=== PATIENT | female | born 1955 | race Caucasian/White ===

== ENCOUNTER 2021-06-06 08:38 | Day surgery (SDC) | payer MEDICAID ==
[~2021-06-06] VITALS: Ht 162.6 cm; Wt 74.5 kg
[2021-06-06] VITALS (16 sets, daily range): BP systolic 97–133; BP diastolic 38–77
[2021-06-06] MEDS ORDERED: normal saline 1000ml 1,000 ML IV SCH (09:00)
[2021-06-06 09:29] LABS: BASOPHILS # (AUTO) 0.1 X10'3 (0-0.2); BASOPHILS % (AUTO) 0.6 % (0-1); EOSINOPHILS # (AUTO) 0.1 X10'3 (0-0.9); EOSINOPHILS % (AUTO) 1.1 % (0-6); HEMATOCRIT 43.6 % (35.0-45.0); HEMOGLOBIN 14.5 g/dl (12.0-16.0); LYMPHOCYTES # (AUTO) 1.9 X10'3 (1.1-4.8); LYMPHOCYTES % (AUTO) 18.6 % (21-51); MEAN CORPUSCULAR HEMOGLOBIN 29.5 PG (27.0-31.0); MEAN CORPUSCULAR HGB CONC 33.3 g/dL (33.0-36.5); MEAN CORPUSCULAR VOLUME 88.6 FL (78-98); MEAN PLATELET VOLUME 9.4 FL (7.4-10.4); MONOCYTES # (AUTO) 0.8 X10'3 (0-0.9); MONOCYTES % (AUTO) 8.1 % (2-12); NEUTROPHILS # (AUTO) 7.1 X10'3 (1.8-7.7); NEUTROPHILS % (AUTO) 71.6 % (42-75); PLATELET COUNT 198 X10'3 (140-440); RED BLOOD COUNT 4.92 X10'6 (4.20-5.60); RED CELL DISTRIBUTION WIDTH 14.3 % (11.5-14.5); WHITE BLOOD COUNT 9.9 X10'3 (4.5-11.0)
[2021-06-06] MEDS ORDERED: GABA300C PO (10:10)
[2021-06-06] MEDS ORDERED: LURA60TA PO (10:10)
[2021-06-06] MEDS ORDERED: SERT-434 PO (10:10)
[2021-06-06] MEDS ORDERED: ASPI-611 PO (10:10)
[2021-06-06] MEDS ORDERED: midazolam 1 mg/ML 2ml injection ONE (10:10)
[2021-06-06] MEDS ORDERED: LIDOcaine 1% (10mg/ml) 2ml vial ONE (10:10)
[2021-06-06] MEDS ORDERED: TOLN113. TOP (10:10)
[2021-06-06] MEDS ORDERED: BENZ1TAB7 PO (10:10)
[2021-06-06] MEDS ORDERED: CLON0.5T23 PO ×2 (10:10)
[2021-06-06] MEDS ORDERED: OMEP20CA16 PO (10:10)
[2021-06-06] MEDS ORDERED: ALBU8.5H17 INH (10:10)
[2021-06-06] MEDS ORDERED: SIMV40TA PO (10:10)
[2021-06-06] MEDS ORDERED: gelatin sponge, absorbable (Gelfoam 12-7MM) sponge TP ONE (10:11)
[2021-06-06] MEDS ORDERED: fentaNYL/PF 50MCG/1 ML 2ML syringe ONE (10:11)
[2021-06-06] MEDS ORDERED: HYDROcodone/acetaminophen 5mg/325mg tablet PO PRN ×2 (11:05)
== END 2021-06-06 14:00 | disposition home or self-care (01) ==
LOC: SSTAY O 08:38
PROVIDERS: ATTEND Radiology Vascular & Interventional Radiology
DX: R91.1 Solitary pulmonary nodule (principal); J84.10 Pulmonary fibrosis, unspecified; Z87.891 Personal history of nicotine dependence; Z79.899 Other long term (current) drug therapy; Z79.82 Long term (current) use of aspirin
CPT/HCPCS: 32408; 36415; 71045; 85025; J3010; J3490; 77012; J2250

== ENCOUNTER 2021-12-15 08:15 | Inpatient (IN) | payer MEDICAID ==
[2021-12-15] VITALS (21 sets, daily range): BP systolic 92–182; BP diastolic 46–98
[~2021-12-15] VITALS: Ht 162.6 cm; Wt 72.3 kg
[~2021-12-15 08:15] MED LIST: ALBU8.5H17 INH; ASPI-611 PO; BENZ1TAB7 PO; CLON0.5T23 PO; CLON1TAB95 PO; GABA300C PO; LURA60TA PO; OMEP20CA16 PO; SERT-434 PO; SIMV40TA PO; albuterol 2.5 MG/3 ML nebule NEB ONE; ceFAZolin inj. 2,000 MG in dextrose 5%-water 100 ML IV ONE; famotidine 20mg tablet PO ONE
[2021-12-15 10:11] LABS: BASOPHILS % (AUTO) 0.6 % (0-1); EOSINOPHILS # (AUTO) 0.2 X10'3 (0-0.9); EOSINOPHILS % (AUTO) 2.4 % (0-6); LYMPHOCYTES # (AUTO) 1.9 X10'3 (1.1-4.8); LYMPHOCYTES % (AUTO) 24.9 % (21-51); MEAN CORPUSCULAR HEMOGLOBIN 30.4 PG (27.0-31.0); MEAN CORPUSCULAR HGB CONC 33.7 g/dL (33.0-36.5); MEAN CORPUSCULAR VOLUME 90.3 FL (78-98); MEAN PLATELET VOLUME 8.6 FL (7.4-10.4); MONOCYTES # (AUTO) 0.7 X10'3 (0-0.9); MONOCYTES % (AUTO) 8.6 % (2-12); NEUTROPHILS # (AUTO) 4.8 X10'3 (1.8-7.7); NEUTROPHILS % (AUTO) 63.5 % (42-75); PRE OP HEMATOCRIT 42.7 % (35.0-45.0); PRE OP HEMOGLOBIN 14.4 g/dL (12.0-16.0); PRE OP PLATELET COUNT 199 X10'3 (140-440); RED BLOOD COUNT 4.73 X10'6 (4.20-5.60); RED CELL DISTRIBUTION WIDTH 14.3 % (11.5-14.5)
[2021-12-15] MEDS: ringers solution, lacted 1,000 ML IV SCH (10:12)
[2021-12-15 10:13] LABS: PRE OP PROTIME 10.2 SECONDS (9.0-12.0)
[2021-12-15] MEDS ORDERED: ipratropium/albuterol 3ml nebule NEB PRN (10:20)
[2021-12-15 10:22] LABS: ALBUMIN 3.8 G/DL (3.4-5.0); ALBUMIN/GLOBULIN RATIO 1.2 (1.1-1.5); ALKALINE PHOSPHATASE 122 IU/L (46-116); BLOOD UREA NITROGEN 15 MG/DL (7-18); BUN/CREATININE RATIO 19.7 (6.6-38.0); CALCIUM 9.5 MG/DL (8.5-10.1); CHLORIDE 106 MMOL/L (99-107); CREATININE 0.76 MG/DL (0.40-0.90); PRE OP ALT 16 U/L (30-65); PRE OP ANION GAP 5 (8-16); PRE OP AST 14 U/L (10-37); PRE OP BILIRUB, TOTAL 0.4 MG/DL (0.0-1.0); PRE OP GLUCOSE 102 MG/DL (70-104); PRE OP POTASSIUM 3.9 MMOL/L (3.4-5.1); PRE OP SODIUM 143 MMOL/L (135-145); TOTAL CARBON DIOXIDE 32.4 MMOL/L (24-32); eGFR 77 ML/MIN
[2021-12-15] MEDS ORDERED: iohexol 300mg/ml 100ml inj. ONE (11:06)
[2021-12-15] MEDS ORDERED: sugammadex 200mg/2ml injection IV ONE (11:50)
[2021-12-15] MEDS ORDERED: dexmedetomidine 200mcg/2ml inj. IV ONE (11:50)
[2021-12-15] MEDS ORDERED: sevoflurane 250ml liquid IH ONE (11:50)
[2021-12-15] MEDS ORDERED: rocuronium 10mg/ml inj IV ONE ×3 (11:58→14:20)
[2021-12-15] MEDS ORDERED: dexamethasone sod phosphate 4mg/ml inj. ONE (11:58)
[2021-12-15] MEDS ORDERED: fentaNYL /PF 50mcg/ml 5ml ampule ONE (11:58)
[2021-12-15] MEDS ORDERED: propofol inj 20 ML IV ONE (11:58)
[2021-12-15] MEDS ORDERED: LIDOcaine 2% (20mg/ml) 5ml vial ONE (11:58)
[2021-12-15] MEDS ORDERED: ondansetron/PF 4mg/2ml inj ONE (11:58)
[2021-12-15] MEDS ORDERED: labetalol 20mg/4ml (5mg/ml) syringe IV ONE (12:44)
[2021-12-15] MEDS ORDERED: morphine 2 MG/ML inj. syringe IV PRN (13:40)
[2021-12-15] MEDS ORDERED: ondansetron/PF 4mg/2ml inj IV PRN ×3 (13:40→16:05)
[2021-12-15] MEDS ORDERED: labetalol 20mg/4ml (5mg/ml) syringe IV PRN (13:40)
[2021-12-15] MEDS ORDERED: hydrALAZINE 20mg/ml inj. IV PRN (13:40)
[2021-12-15] MEDS ORDERED: ringers solution, lacted 1,000 ML IV SCH (13:40)
[2021-12-15] MEDS ORDERED: fentaNYL/PF 50MCG/1 ML 2ML syringe IV PRN ×2 (13:40)
[2021-12-15] MEDS ORDERED: BUPIVACAINE liposomal/PF 13.3 MG/ML vial IM ONE ×2 (14:04→14:05)
[2021-12-15] MEDS ORDERED: BUPIVAcaine/PF 2.5 mg/ml (0.25%) 30ml vial ONE (14:04)
--- NOTE | 2021-12-15 15:30 | NUR ---
Received from OR via [facility], accompanied by Anesthesiologist and report given by Anesthesiologist. PATIENT WAKING UP, NO S/S OF PAIN, V/S WNL, 20G TO RUE, ART LINE RUE, SCD ON, NEURO CHECKS WNL , PERRLA EYES, EQUAL STRENGTHS BUE BLE , TONGUE MIDLINE, CL TRIPLE LUMEN RIGHT NECK CDI .MINIMAL OUTPUT TO RIGHT CHEST TUBE CDI WITH NO LEAKS DETECTED AT 20CM OF SUCTION. F/C DRAINING CLEAR YELLOW TUBING. ABG DRAWN AND WILL REPEAT IN 30 MIN, CHEST XRY REVIEWED BY ANESTHESIA. CVP 9
[2021-12-15 15:40] LABS: ABG BASE EXCESS -0.2 mmol/L (-2.0-2.0); ABG HCO3 27.6 mmol/L (22.0-26.0); ABG OXYGEN SATURATION 97.4 % (94-97); ABG PCO2 (T) 55.5 mmHg (32.0-45.0); ABG PO2 (T) 99.8 mmHg (75.0-100.0); FCOHb 1.4 % (0.0-3.9); FLOW 10 L/min; FMetHb 0.3 % (0.0-1.5); FO2Hb 95.7 % (94-97); TOTAL HEMOGLOBIN 14.4 G/dl (12.0-16.0)
[2021-12-15] MEDS ORDERED: HYDROcodone/acetaminophen 5mg/325mg tablet PO PRN (16:05)
[2021-12-15] MEDS ORDERED: naloxone 0.4 mg/ml inj IV PRN (16:05)
[2021-12-15] MEDS: morphine 4 MG/ML inj SYRINge IV PRN ×2 (16:13→16:32)
[2021-12-15 16:21] LABS: ABG BASE EXCESS -0.9 mmol/L (-2.0-2.0); ABG HCO3 26.1 mmol/L (22.0-26.0); ABG PCO2 (T) 50.3 mmHg (32.0-45.0); ABG PO2 (T) 63.5 mmHg (75.0-100.0); FCOHb 1.4 % (0.0-3.9); FLOW 2 L/min; FMetHb 0.3 % (0.0-1.5); FO2Hb 90.4 % (94-97); TOTAL HEMOGLOBIN 14.4 G/dl (12.0-16.0)
[2021-12-15] MEDS: ketorolac trometh. 30mg/ml inj. IV PRN (16:33)
--- NOTE | 2021-12-15 17:29 | NUR ---
Received report from ARACELY Gordon.
[2021-12-15 17:38] LABS: ABG BASE EXCESS 0.2 mmol/L (-2.0-2.0); ABG OXYGEN SATURATION 92.6 % (94-97); ABG PCO2 (T) 56.4 mmHg (32.0-45.0); ABG PO2 (T) 66.3 mmHg (75.0-100.0); FCOHb 1.3 % (0.0-3.9); FLOW 3 L/min; FMetHb 0.3 % (0.0-1.5); FO2Hb 91.1 % (94-97); TOTAL HEMOGLOBIN 14.1 G/dl (12.0-16.0)
--- NOTE | 2021-12-15 18:18 | NUR ---
Problems reprioritized. Patient report given, questions answered & plan of care reviewed with ARACELY Zavaleta.
--- NOTE | 2021-12-15 18:20 | NUR ---
PATIENT A&OX4, DENIES PAIN, V/S WNL, 20G TO RUE, ART LINE RUE D/C, SCD ON, NEURO CHECKS WNL , CL TRIPLE LUMEN RIGHT NECK CDI .MINIMAL OUTPUT TO RIGHT CHEST TUBE CDI WITH NO LEAKS DETECTED AT 20CM OF SUCTION. F/C DRAINING CLEAR YELLOW TUBING. ABG DRAWN AND WILL REPEAT AT 1900. PATIENT TAKEN TO ROOM 360A WITH ALL BELONGINGS AND HOOKED UP TO MONITORS AND SUCTION IN ROOM AND GIVEN CALL LIGHT, TELE ON, REPORT GIVEN TO RN WHO HAS TAKEN OVER PATIENT CARE.
[2021-12-15] MEDS: potassium CL 20mEq in D5-1/2NS 1,000 ML IV SCH (19:36)
[2021-12-15 20:41] LABS: ABG HCO3 27.2 mmol/L (22.0-26.0); ABG OXYGEN SATURATION 91.7 % (94-97); ABG PCO2 (T) 56.6 mmHg (32.0-45.0); ABG PO2 (T) 68.8 mmHg (75.0-100.0); ALLEN'S TEST POSITIVE; FCOHb 1.3 % (0.0-3.9); FLOW 3 L/min; FMetHb 0.3 % (0.0-1.5); FO2Hb 90.2 % (94-97); PATIENT TEMPERATURE 37.6; TOTAL HEMOGLOBIN 13.9 G/dl (12.0-16.0)
[2021-12-15] MEDS: ceFAZolin 1GM/D5W- ADD-VANTAGE 50 ML IV SCH (23:40)
[2021-12-16] VITALS: BP 100/62
--- NOTE | 2021-12-16 | NUR ---
Dr. Ascencio called, order for pts chest tube to be on suction. Addendum: 12/16/21 at 0033 by Meghann Pulliam RN Amended: Links added.
[2021-12-16] MEDS: potassium CL 20mEq in D5-1/2NS 1,000 ML IV SCH ×4 (00:05→19:01)
[2021-12-16] MEDS: HYDROmorphone inj. 0.5 MG/0.5 ML DISP.SYRIN IV PRN ×2 (03:20→16:51)
[2021-12-16 04:00] VITALS: BP 99/57
--- NOTE | 2021-12-16 06:39 | NUR ---
Problems reprioritized. Patient report given, questions answered & plan of care reviewed with Melanie JESSICA. Addendum: 12/16/21 at 0640 by Meghann Pulliam RN Amended: Links added.
[2021-12-16 06:43] LABS: BASOPHILS % (AUTO) 0.2 % (0-1); EOSINOPHILS % (AUTO) 0 % (0-6); HEMATOCRIT 36.1 % (35.0-45.0); HEMOGLOBIN 12.2 g/dl (12.0-16.0); LYMPHOCYTES # (AUTO) 1.5 X10'3 (1.1-4.8); LYMPHOCYTES % (AUTO) 9.6 % (21-51); MEAN CORPUSCULAR HEMOGLOBIN 30.6 PG (27.0-31.0); MEAN CORPUSCULAR HGB CONC 33.7 g/dL (33.0-36.5); MEAN PLATELET VOLUME 9.5 FL (7.4-10.4); MONOCYTES # (AUTO) 1.5 X10'3 (0-0.9); MONOCYTES % (AUTO) 9.4 % (2-12); NEUTROPHILS # (AUTO) 12.6 X10'3 (1.8-7.7); NEUTROPHILS % (AUTO) 80.8 % (42-75); PLATELET COUNT 174 X10'3 (140-440); RED BLOOD COUNT 3.97 X10'6 (4.20-5.60); RED CELL DISTRIBUTION WIDTH 14.3 % (11.5-14.5); WHITE BLOOD COUNT 15.6 X10'3 (4.5-11.0)
[2021-12-16 06:53] LABS: ALBUMIN 3.1 G/DL (3.4-5.0); ANION GAP 2 (8-16); BLOOD UREA NITROGEN 12 MG/DL (7-18); BUN/CREATININE RATIO 16.2 (6.6-38.0); CALCIUM 8.4 MG/DL (8.5-10.1); CHLORIDE 105 MMOL/L (99-107); CREATININE 0.74 MG/DL (0.40-0.90); GLUCOSE 146 MG/DL (70-104); POTASSIUM 4.1 MMOL/L (3.5-5.1); SODIUM 138 MMOL/L (135-145); TOTAL CARBON DIOXIDE 30.6 MMOL/L (24-32); eGFR 79 ML/MIN
--- NOTE | 2021-12-16 06:56 | NUR ---
Patient in room [facility]. I have received report from lesli ayala and had the opportunity to ask questions and assume patient care.
[2021-12-16] MEDS: ceFAZolin 1GM/D5W- ADD-VANTAGE 50 ML IV SCH (08:35)
[2021-12-16 09:07] VITALS: BP 115/56
[2021-12-16 11:59] VITALS: BP 109/53
--- NOTE | 2021-12-16 18:47 | NUR ---
Problems reprioritized. Patient report given, questions answered & plan of care reviewed with ARMANDO RN.
[2021-12-16 19:00] VITALS: BP 133/89
[2021-12-16] MEDS: ringers solution, lacted 1,000 ML IV SCH (19:02)
[2021-12-17] VITALS: BP 123/61
[2021-12-17] MEDS: HYDROmorphone inj. 0.5 MG/0.5 ML DISP.SYRIN IV PRN ×2 (00:39→11:24)
[2021-12-17] MEDS: potassium CL 20mEq in D5-1/2NS 1,000 ML IV SCH ×3 (02:51→20:49)
[2021-12-17 04:00] VITALS: BP 127/64
--- NOTE | 2021-12-17 06:33 | NUR ---
Problems reprioritized. Patient report given, questions answered & plan of care reviewed with Melanie JESSICA. Addendum: 12/17/21 at 0633 by Meghann Pulliam RN Amended: Links added.
[2021-12-17 06:52] LABS: ALBUMIN 2.9 G/DL (3.4-5.0); ANION GAP 2 (8-16); BLOOD UREA NITROGEN 7 MG/DL (7-18); BUN/CREATININE RATIO 11.5 (6.6-38.0); CALCIUM 8.8 MG/DL (8.5-10.1); CHLORIDE 108 MMOL/L (99-107); CREATININE 0.61 MG/DL (0.40-0.90); GLUCOSE 140 MG/DL (70-104); POTASSIUM 4.3 MMOL/L (3.5-5.1); SODIUM 141 MMOL/L (135-145); TOTAL CARBON DIOXIDE 31.1 MMOL/L (24-32); eGFR > 90 ML/MIN
[2021-12-17 06:58] LABS: BASOPHILS % (AUTO) 0.3 % (0-1); EOSINOPHILS % (AUTO) 0.3 % (0-6); HEMATOCRIT 37.3 % (35.0-45.0); HEMOGLOBIN 12.3 g/dl (12.0-16.0); LYMPHOCYTES # (AUTO) 1.7 X10'3 (1.1-4.8); LYMPHOCYTES % (AUTO) 15.2 % (21-51); MEAN CORPUSCULAR HEMOGLOBIN 30.1 PG (27.0-31.0); MEAN CORPUSCULAR HGB CONC 33.1 g/dL (33.0-36.5); MEAN CORPUSCULAR VOLUME 91.2 FL (78-98); MEAN PLATELET VOLUME 9.5 FL (7.4-10.4); MONOCYTES # (AUTO) 1.2 X10'3 (0-0.9); MONOCYTES % (AUTO) 10.9 % (2-12); NEUTROPHILS # (AUTO) 8.3 X10'3 (1.8-7.7); NEUTROPHILS % (AUTO) 73.3 % (42-75); PLATELET COUNT 176 X10'3 (140-440); RED BLOOD COUNT 4.09 X10'6 (4.20-5.60); RED CELL DISTRIBUTION WIDTH 14.4 % (11.5-14.5); WHITE BLOOD COUNT 11.3 X10'3 (4.5-11.0)
--- NOTE | 2021-12-17 07:00 | NUR ---
WHEN PT GOT UP WITH PT CHEST TUBE BEGAN TO LEAK AROUND INSERTION SITE. IT COMPLETELY SOILED DSG AND IT WAS COMING OFF. WHEN ASSESSED, I NOTICED THAT CHEST TUBE WAS KINKED AT INSERTION SITE. REMOVED DSG, STRAIGHTENED TUBING AND REAPPLIED CLEAN DSG. CHEST TUBE APPEARS TO BE WORKING AT THIS TIME, NO LEAKS. WILL CONT TO MONITOR.
[2021-12-17 07:26] VITALS: BP 136/79
--- NOTE | 2021-12-17 08:11 | NUR ---
Student documentation: IV access was initiated by student nurse Ronen Jose with Instructor Kaleb Morris Rn at 0737. Other IV site was discontinued due to no longer being patent/usable.
[2021-12-17 11:00] VITALS: BP 125/63
--- NOTE | 2021-12-17 15:00 | NUR ---
Student documentation: D/C Martin Cath under instruction by and RN. Student Nurse Zara with instructor Kaleb Morris RN D/C the martin catheter at 1445. Patient tolerated d/c well.
--- NOTE | 2021-12-17 16:36 | NUR ---
Student documentation: Performed physical assessment. RN nurse is also performing her own physical assessment.
[2021-12-17 18:00] VITALS: BP 137/69
--- NOTE | 2021-12-17 18:15 | NUR ---
Problems reprioritized. Patient report given, questions answered & plan of care reviewed with ANGELO JESSICA.
--- NOTE | 2021-12-17 18:17 | NUR ---
Student documentation: I have reviewed and agree with all interventions, assessments performed and documented by Ronen Jose student nurse. Kaleb Morris RN, Instructor
--- NOTE | 2021-12-17 19:29 | NUR ---
Patient in room [facility]. I have received report from ANGELO JESSICA and had the opportunity to ask questions and assume patient care.
[2021-12-17] MEDS ORDERED: albuterol 2.5 MG/3 ML nebule NEB PRN (21:00)
[2021-12-17] MEDS: gabapentin 300mg capsule PO SCH (21:54)
[2021-12-17] MEDS: benztropine 1mg tablet PO SCH (21:54)
[2021-12-17] MEDS: sertraline 50mg tablet PO SCH (21:54)
[2021-12-17] MEDS: lurasidone 60mg tablet PO SCH (21:57)
[2021-12-17 22:00] VITALS: BP 132/90
[2021-12-18 02:00] VITALS: BP 132/69
[2021-12-18 02:50] VITALS: BP 137/69
[2021-12-18 06:00] VITALS: BP 140/68
--- NOTE | 2021-12-18 06:35 | NUR ---
Problems reprioritized. Patient report given, questions answered & plan of care reviewed with SIMON JESSICA.
[2021-12-18 06:41] LABS: ALBUMIN 2.9 G/DL (3.4-5.0); ANION GAP 4 (8-16); BLOOD UREA NITROGEN 7 MG/DL (7-18); BUN/CREATININE RATIO 11.3 (6.6-38.0); CALCIUM 9.1 MG/DL (8.5-10.1); CHLORIDE 107 MMOL/L (99-107); CREATININE 0.62 MG/DL (0.40-0.90); GLUCOSE 149 MG/DL (70-104); POTASSIUM 3.8 MMOL/L (3.5-5.1); SODIUM 141 MMOL/L (135-145); TOTAL CARBON DIOXIDE 30.2 MMOL/L (24-32); eGFR > 90 ML/MIN
[2021-12-18 06:43] LABS: BASOPHILS % (AUTO) 0.3 % (0-1); EOSINOPHILS % (AUTO) 0.2 % (0-6); HEMATOCRIT 37.1 % (35.0-45.0); HEMOGLOBIN 12.5 g/dl (12.0-16.0); LYMPHOCYTES # (AUTO) 1.3 X10'3 (1.1-4.8); LYMPHOCYTES % (AUTO) 11.6 % (21-51); MEAN CORPUSCULAR HEMOGLOBIN 30.5 PG (27.0-31.0); MEAN CORPUSCULAR HGB CONC 33.6 g/dL (33.0-36.5); MEAN CORPUSCULAR VOLUME 90.7 FL (78-98); MEAN PLATELET VOLUME 9.1 FL (7.4-10.4); MONOCYTES # (AUTO) 1.3 X10'3 (0-0.9); MONOCYTES % (AUTO) 11.8 % (2-12); NEUTROPHILS # (AUTO) 8.7 X10'3 (1.8-7.7); NEUTROPHILS % (AUTO) 76.1 % (42-75); PLATELET COUNT 185 X10'3 (140-440); RED BLOOD COUNT 4.09 X10'6 (4.20-5.60); RED CELL DISTRIBUTION WIDTH 14.2 % (11.5-14.5); WHITE BLOOD COUNT 11.4 X10'3 (4.5-11.0)
[2021-12-18] MEDS: potassium CL 20mEq in D5-1/2NS 1,000 ML IV SCH ×2 (07:43→16:05)
[2021-12-18] MEDS: atorvastatin 20mg tablet PO SCH (07:44)
[2021-12-18] MEDS: gabapentin 300mg capsule PO SCH ×3 (07:44→20:40)
[2021-12-18] MEDS: pantoprazole 40mg Tablet.DR PO SCH ×2 (07:44→20:40)
[2021-12-18] MEDS: clonazePAM 0.5mg tablet PO SCH (07:44)
[2021-12-18] MEDS: aspirin 81mg, enteric-coated 1 TAB TABLET.DR PO SCH (07:44)
[2021-12-18 10:00] VITALS: BP 115/62
[2021-12-18 18:00] VITALS: BP 134/72
--- NOTE | 2021-12-18 20:13 | NUR ---
Problems reprioritized. Patient report given, questions answered & plan of care reviewed with ARACELY FARRAR.
[2021-12-18] MEDS: benztropine 1mg tablet PO SCH (20:40)
[2021-12-18] MEDS: sertraline 50mg tablet PO SCH (20:40)
[2021-12-18] MEDS: ketorolac trometh. 30mg/ml inj. IV PRN (20:48)
[2021-12-18] MEDS: lurasidone 60mg tablet PO SCH (20:50)
--- NOTE | 2021-12-18 21:26 | NUR ---
Patient in room [facility]. I have received report from ARACELY Lai and had the opportunity to ask questions and assume patient care. Patient sitting up in bed watching TV, in no obvious distress.
[2021-12-18 22:00] VITALS: BP 134/73
[2021-12-19] MEDS: potassium CL 20mEq in D5-1/2NS 1,000 ML IV SCH ×2 (00:05→08:05)
--- NOTE | 2021-12-19 01:36 | NUR ---
arrived from ER on a gurney and was able to ambulate to hospital bed w/ standby assist.
[2021-12-19 05:51] LABS: BASOPHILS % (AUTO) 0.4 % (0-1); EOSINOPHILS # (AUTO) 0.2 X10'3 (0-0.9); EOSINOPHILS % (AUTO) 2.1 % (0-6); HEMATOCRIT 37.6 % (35.0-45.0); HEMOGLOBIN 12.6 g/dl (12.0-16.0); LYMPHOCYTES # (AUTO) 1.5 X10'3 (1.1-4.8); LYMPHOCYTES % (AUTO) 15.7 % (21-51); MEAN CORPUSCULAR HEMOGLOBIN 30.1 PG (27.0-31.0); MEAN CORPUSCULAR HGB CONC 33.4 g/dL (33.0-36.5); MEAN CORPUSCULAR VOLUME 90.2 FL (78-98); MEAN PLATELET VOLUME 9.3 FL (7.4-10.4); MONOCYTES # (AUTO) 1.1 X10'3 (0-0.9); MONOCYTES % (AUTO) 11.6 % (2-12); NEUTROPHILS # (AUTO) 6.5 X10'3 (1.8-7.7); NEUTROPHILS % (AUTO) 70.2 % (42-75); PLATELET COUNT 194 X10'3 (140-440); RED BLOOD COUNT 4.17 X10'6 (4.20-5.60); WHITE BLOOD COUNT 9.3 X10'3 (4.5-11.0)
[2021-12-19 06:00] VITALS: BP 145/67
[2021-12-19 06:04] LABS: ALBUMIN 2.9 G/DL (3.4-5.0); ANION GAP 4 (8-16); BLOOD UREA NITROGEN 9 MG/DL (7-18); BUN/CREATININE RATIO 13.6 (6.6-38.0); CALCIUM 9.5 MG/DL (8.5-10.1); CHLORIDE 108 MMOL/L (99-107); CREATININE 0.66 MG/DL (0.40-0.90); GLUCOSE 106 MG/DL (70-104); POTASSIUM 3.9 MMOL/L (3.5-5.1); SODIUM 142 MMOL/L (135-145); TOTAL CARBON DIOXIDE 29.6 MMOL/L (24-32); eGFR 90 ML/MIN
--- NOTE | 2021-12-19 06:16 | NUR ---
Patient in room [facility]. I have received report from ARACELY Lai and had the opportunity to ask questions and assume patient care.
--- NOTE | 2021-12-19 06:45 | NUR ---
Patient in room [facility]A. I have received report from ARACELY FARRAR and had the opportunity to ask questions and assume patient care.
[2021-12-19] MEDS: clonazePAM 0.5mg tablet PO SCH (08:23)
[2021-12-19] MEDS: gabapentin 300mg capsule PO SCH ×2 (08:27→13:00)
[2021-12-19] MEDS: atorvastatin 20mg tablet PO SCH (08:27)
[2021-12-19] MEDS: aspirin 81mg, enteric-coated 1 TAB TABLET.DR PO SCH (08:28)
[2021-12-19] MEDS: pantoprazole 40mg Tablet.DR PO SCH (08:29)
[2021-12-19 10:00] VITALS: BP 110/72
--- NOTE | 2021-12-19 11:57 | NUR ---
Charting by Claudia PARSON reviewed by Adam Dunn RN. Medication administration by Claudia PARSON observed by Adam Dunn RN
--- NOTE | 2021-12-19 17:26 | NUR ---
PATIENT STABLE AND APPROPRIATE FOR DISCHARGE, IV REMOVED, EDUCATION GIVEN, MEDS STORED IN PHARMACY SENT WITH PATIENT, ALL BELONGINGS SENT WITH PATIENT, PATIENT TAKEN TO LOBBY BY WHEELCHAIR TO AN AWAITING CAR WHERE BROTHER WILL TAKE PATIENT HOME
== END 2021-12-19 15:59 | disposition home or self-care (01) | DRG 121 ==
LOC: UNDOADMIN 08:15 → PAS IN 08:15 → SUR 3N 18:00
PROVIDERS: ADMIT Surgery; ATTEND Surgery
PROC: 07B74ZX Excision of Thorax Lymphatic, Percutaneous Endoscopic Approach, Diagnostic (ICD-10-PCS; 2021-12-15)
PROC: 0WJC4ZZ Inspection of Mediastinum, Percutaneous Endoscopic Approach (ICD-10-PCS; 2021-12-15)
PROC: 8E0W4CZ Robotic Assisted Procedure of Trunk Region, Percutaneous Endoscopic Approach (ICD-10-PCS; 2021-12-15)
PROC: 02HV33Z Insertion of Infusion Device into Superior Vena Cava, Percutaneous Approach (ICD-10-PCS; 2021-12-15)
PROC: B548ZZA Ultrasonography of Superior Vena Cava, Guidance (ICD-10-PCS; 2021-12-15)
PROC: 03HY32Z Insertion of Monitoring Device into Upper Artery, Percutaneous Approach (ICD-10-PCS; 2021-12-15)
PROC: B34HZZZ Ultrasonography of Right Upper Extremity Arteries (ICD-10-PCS; 2021-12-15)
PROC: BW241ZZ Computerized Tomography (CT Scan) of Chest and Abdomen using Low Osmolar Contrast (ICD-10-PCS; 2021-12-15)
PROC: 0BJ08ZZ Inspection of Tracheobronchial Tree, Via Natural or Artificial Opening Endoscopic (ICD-10-PCS; principal; 2021-12-15 11:50)
DX: C34.11 Malignant neoplasm of upper lobe, right bronchus or lung (principal); J44.9 Chronic obstructive pulmonary disease, unspecified; F32.A Depression, unspecified; F41.9 Anxiety disorder, unspecified; K21.9 Gastro-esophageal reflux disease without esophagitis; G62.9 Polyneuropathy, unspecified
CPT/HCPCS: 36415; 36600; 71045; 71260; 80048; 80053; 82803; 82948; 85018; 85025; 85610; 85730; 86885; 86900; 86901; 87081; 94640; 97110; 97116; 97161; 97530; A4618; A6253; A6258; A6449; A7000; A7048; C1758; C9290; G0378; J0690; J1100; J1170; J1885; J2270; J2405; J2704; J3010; J3480; J3490; J7040; J7060; J7120; Q9967